=== PATIENT | female | born 1955 | race Caucasian/White ===

== ENCOUNTER 2017-02-01 06:53 | Day surgery (SDC) | payer BC ==
[~2017-02-01 06:53] MED LIST: ALEVE220 M4 PO; CELEXA20 M2 PO; LIPITOR40 M1 PO; PRILOSEC OTC20 M1 PO; VITAMIN D3 COM1 EACH PO; ZOFRAN4 MG/5 M1 PO
[2017-02-01 07:52] LABS: BASO % 0.2 % (0-2); EOS % 2.1 % (0-7); EOSINOPHIL ABSOLUTE COUNT 0.1 tho/cmm (0.0-0.7); HCT-HEMATOCRIT 32.9 % (34.0-49.0); HGB-HEMOGLOBIN 10.4 gm/dl (12.0-15.5); LYMPH % 3.2 % (20-45); LYMPH ABSOLUTE COUNT 0.2 tho/cmm (0.8-4.5); MCH (MEAN CORPUSCULAR HGB) 28.7 pg (28.0-32.0); MCHC MEAN CORPUSCULAR HGB CONC 31.6 % (32.0-36.0); MCV (MEAN CELL VOLUME) 90.6 fl (82.0-96.0); MEAN PLATELET VOLUME 9.3 cmc (9.4-12.4); MONO % 7.1 % (0-12); MONOCYTE ABSOLUTE COUNT 0.4 tho/cmm (0.0-1.2); NEUTROPHILS % 87.4 % (40-80); PLATELET COUNT 244 tho/cmm (150-450); RED BLOOD COUNT 3.63 mil/cmm (4.00-5.20); RED CELL DISTRIBUTION WIDTH 15.9 % (12.4-16.4); WHITE BLOOD COUNT 5.7 tho/cmm (4.0-10.0)
[2017-02-01 07:55] LABS: INR 1.2 INR (0.9-1.1); PROTHROMBIN TIME 13.6 SECONDS (9.0-13.6)
[2017-06-15] MEDS ORDERED: METFORMIN HCL500 M2 PO (10:01)
[2017-06-15] MEDS ORDERED: [UNRECOGNIZED DRUG - REMARK] (10:06)
== END 2017-02-01 11:45 ==
LOC: US 06:53 → SHSB 07:19
PROVIDERS: Radiology Diagnostic Radiology
PROC: 0W993ZZ Drainage of Right Pleural Cavity, Percutaneous Approach (ICD-10-PCS; principal; 2017-02-01)
PROC: 0WBH3ZX Excision of Retroperitoneum, Percutaneous Approach, Diagnostic (ICD-10-PCS; 2017-02-01)
DX: J90 Pleural effusion, not elsewhere classified (principal); Z79.899 Other long term (current) drug therapy; Z87.891 Personal history of nicotine dependence; Z90.49 Acquired absence of other specified parts of digestive tract; Z90.710 Acquired absence of both cervix and uterus; Z98.890 Other specified postprocedural states
CPT/HCPCS: J7030